=== PATIENT | male | born 1985 | race Native Hawaiian/Other Pacific Islander ===

== ENCOUNTER 2020-01-30 17:42 | Emergency (ER) | payer BC ==
[~2020-01-30] VITALS: Ht 180.3 cm; Wt 102.1 kg
[2020-01-30 19:33] VITALS: BP 158/58; TEMP 97.9
== END 2020-01-30 19:33 | disposition home or self-care (01) ==
LOC: ED 17:42
DX: S46.211A Strain of muscle, fascia and tendon of other parts of biceps, right arm, initial encounter (principal); X50.0XXA Overexertion from strenuous movement or load, initial encounter; Y92.098 Other place in other non-institutional residence as the place of occurrence of the external cause
CPT/HCPCS: 96372; 99283; J1170; J1885; J2405